=== PATIENT | female | born 1980 | race Caucasian/White ===

== ENCOUNTER 2018-11-21 19:26 | Emergency (ER) | payer MEDICAID ==
[~2018-11-21] VITALS: Ht 167.6 cm; Wt 65.8 kg
--- NOTE | 2018-11-21 20:00 | NUR ---
pt is a/a/ox4 ls diminished has a dry cough is a smoker not interested in quitting overall appearances fair ble's 2 plus edema noted denies pain but just wanted something for cough boyfriend at her side
--- NOTE | 2018-11-21 20:11 | NUR ---
pt discharge stated she lives in her car with her boyfriend offer skilled nursing information and transport but pt refused, prescriptions teaching given and discharge teaching given with effect
[2018-11-21 20:32] VITALS: BP 134/68
== END 2018-11-21 20:36 | disposition home or self-care (01) ==
LOC: ER 19:26
DX: J06.9 Acute upper respiratory infection, unspecified (principal); Z87.891 Personal history of nicotine dependence
CPT/HCPCS: A4663

== ENCOUNTER 2023-06-30 09:41 | Inpatient (IN) | payer MEDICAID, OTHER ==
[~2023-06-30] VITALS: Ht 167.6 cm; Wt 90.7 kg
[2023-06-30] MEDS ORDERED: CEphaleXIN 500 MG CAPSULE ONE (10:12)
[2023-06-30] MEDS ORDERED: SULFAMETH/TRIMETH 800/160 MG TABLET ONE (10:13)
[2023-06-30] MEDS ORDERED: CEphaleXIN 500 MG CAPSULE PO ONE (10:15)
[2023-06-30] MEDS ORDERED: SULFAMETH/TRIMETH 800/160 MG TABLET PO ONE (10:15)
[2023-06-30] MEDS ORDERED: HEPARIN/D5W DRIP 500 ML IV PRN (10:30)
[2023-06-30] MEDS ORDERED: IV NORMAL SALINE 250 ML IV ONE (10:43)
[2023-06-30] MEDS ORDERED: SWABABLE VALVE TRANSFER SET EA MC ONE (10:43)
[2023-06-30] MEDS ORDERED: IOHEXOL 350 100 ML INFUS..BTL ONE (10:43)
[2023-06-30] MEDS ORDERED: [UNRECOGNIZED DRUG - OTHER] ONE (10:46)
[2023-06-30] MEDS ORDERED: HEPARIN ONE (10:46)
[2023-06-30] MEDS ORDERED: HEPARIN SODIUM,PORCINE 5,000 UNITS/ML VIAL ONE (10:46)
[2023-06-30 10:48] LABS: BASOPHILS # (AUTO) 0.1 K/UL (0.0-0.2); BASOPHILS % (AUTO) 0.7 % (0.0-2.0); EOSINOPHILS # (AUTO) 0.1 K/uL (0.0-0.7); EOSINOPHILS % (AUTO) 1.5 % (0.0-7.0); HEMATOCRIT 33.1 % (31.2-41.9); LYMPHOCYTES # (AUTO) 1.9 K/uL (0.8-4.8); LYMPHOCYTES % (AUTO) 22.7 % (20.5-51.5); MEAN CORPUSCULAR HEMOGLOBIN 26.4 uug (24.7-32.8); MEAN CORPUSCULAR HGB CONC 33 g/dL (32.3-35.6); MEAN CORPUSCULAR VOLUME 79.7 fL (75.5-95.3); MONOCYTES # (AUTO) 0.7 K/uL (0.1-1.30); MONOCYTES % (AUTO) 8.2 % (0.0-11.0); NEUTROPHILS # (AUTO) 5.7 K/uL (1.8-8.9); NEUTROPHILS % (AUTO) 66.9 % (38.5-71.5); PLATELET COUNT (AUTO) 321 K/uL (179-408); RED BLOOD CELL COUNT(AUTO) 4.15 MIL/uL (3.63-4.92); RED CELL DISTRIBUTION WIDTH 14.7 % (12.3-17.7); WHITE BLOOD COUNT (AUTO) 8.5 K/uL (3.8-11.8)
[2023-06-30 10:58] LABS: CALCIUM 9.3 mg/dL (8.5-10.1); CARBON DIOXIDE 28 mmol/L (21-32); CHLORIDE 106 mmol/L (98-107); CREATININE 0.7 mg/dL (0.6-1.3); GLUCOSE 118 mg/dL (74-106); POTASSIUM 3.7 mmol/L (3.5-5.1); SODIUM SERUM 140 mmol/L (136-145); UREA NITROGEN, BLOOD 10 mg/dL (7-18)
[2023-06-30] MEDS ORDERED: HEPARIN SODIUM,PORCINE/PF 100 UNIT/ML, 5ML SYR XX ONE (11:00)
[2023-06-30 11:01] LABS: DIFFERENTIAL COMMENT 1
[2023-06-30 11:10] LABS: ALANINE AMINOTRANSFERASE 17 U/L (14-59); ALKALINE PHOSPHATASE 91 U/L (50-136); ASPARTATE AMINOTRANSFERASE 11 U/L (15-37); BILIRUBIN,DIRECT 0.1 mg/dL (0.0-0.2); BILIRUBIN,TOTAL 0.3 mg/dL (0.2-1.0); NT-PRO BNP 38 pg/mL (0-125); TOTAL PROTEIN, SERUM 7.6 g/dL (6.4-8.2)
[2023-06-30] MEDS ORDERED: HEPARIN SODIUM,PORCINE 5,000 UNITS/ML VIAL IV ONE (11:15)
[2023-06-30] MEDS: VANCOMYCIN IV 1,500 MG in IV DEXTROSE 5% 500 ML IV SCH (11:44)
[2023-06-30] MEDS ORDERED: CEPH500C2 PO (12:11)
[2023-06-30] MEDS ORDERED: SULF1TAB48 PO (12:11)
[2023-06-30 13:04] LABS: HIV-1 p24 ANTIGEN NON REACTIVE (NONREACTIVE); HIV-1/2 ANTIBODY NON REACTIVE (NONREACTIVE)
[2023-06-30] MEDS ORDERED: MAGNESIUM HYDROXIDE 30 ML LIQUID UDC PO PRN (18:00)
[2023-06-30] MEDS ORDERED: ACETAMINOPHEN 325 MG TABLET PO PRN (18:00)
[2023-06-30] MEDS ORDERED: ONDANSETRON 4 MG/2 ML VIAL IV PRN (18:00)
[2023-06-30] MEDS ORDERED: ENOXAPARIN SODIUM 100 MG/ML DISP.SYRIN SQ SCH (19:45)
[2023-06-30] MEDS ORDERED: ENOXAPARIN SODIUM 100 MG/ML DISP.SYRIN SQ ONE (19:49)
[2023-06-30] MEDS ORDERED: PIPERACILLIN/TAZOBACTAM/D5W 50 ML IV ONE (20:06)
[2023-06-30] MEDS: PIPERACILLIN SODIUM/TAZOBACTAM 3.375 G in IV DEXTROSE 5% 50 ML IV SCH (20:49)
[2023-06-30] MEDS ORDERED: PIPERACILLIN SODIUM/TAZO 3.375 GM VIAL ONE (21:40)
[2023-06-30] MEDS: ACIDOPHILUS/BULGARICUS CHEW TAB PO SCH (21:45)
[2023-06-30] MEDS: DOCUSATE SODIUM 250 MG CAPSULE PO SCH (21:45)
[2023-06-30] MEDS: MORPHINE SULFATE 2 MG/1 ML DISP.SYRIN IV PRN (21:45)
[2023-06-30 21:46] VITALS: BP 160/96; TEMP 98.7; O2SAT 97
[2023-06-30] MEDS ORDERED: VANCOMYCIN HCL 500 MG VIAL ONE (21:47)
[2023-06-30] MEDS ORDERED: VANCOMYCIN 1000 MG VIAL ONE (21:47)
[2023-07-01 00:11] VITALS: BP 134/88; TEMP 98.2; O2SAT 97
[2023-07-01] MEDS: PIPERACILLIN SODIUM/TAZOBACTAM 3.375 G in IV DEXTROSE 5% 50 ML IV SCH ×2 (02:09→09:31)
[2023-07-01] MEDS: MORPHINE SULFATE 2 MG/1 ML DISP.SYRIN IV PRN ×4 (02:10→22:11)
[2023-07-01] MEDS: VANCOMYCIN IV 1,500 MG in IV DEXTROSE 5% 500 ML IV SCH ×2 (02:11→16:22)
[2023-07-01 04:22] VITALS: BP 154/93; TEMP 98.7; O2SAT 96
[2023-07-01 07:24] LABS: BASOPHILS % (AUTO) 0.4 % (0.0-2.0); EOSINOPHILS # (AUTO) 0.1 K/uL (0.0-0.7); EOSINOPHILS % (AUTO) 1.7 % (0.0-7.0); HEMATOCRIT 33.8 % (31.2-41.9); HEMOGLOBIN 11.4 g/dL (10.9-14.3); LYMPHOCYTES # (AUTO) 1.6 K/uL (0.8-4.8); LYMPHOCYTES % (AUTO) 20.9 % (20.5-51.5); MEAN CORPUSCULAR HEMOGLOBIN 26.5 uug (24.7-32.8); MEAN CORPUSCULAR HGB CONC 34 g/dL (32.3-35.6); MEAN CORPUSCULAR VOLUME 78.9 fL (75.5-95.3); MONOCYTES # (AUTO) 0.5 K/uL (0.1-1.30); MONOCYTES % (AUTO) 6.4 % (0.0-11.0); NEUTROPHILS # (AUTO) 5.2 K/uL (1.8-8.9); NEUTROPHILS % (AUTO) 70.6 % (38.5-71.5); PLATELET COUNT (AUTO) 304 K/uL (179-408); RED BLOOD CELL COUNT(AUTO) 4.29 MIL/uL (3.63-4.92); RED CELL DISTRIBUTION WIDTH 14.3 % (12.3-17.7); WHITE BLOOD COUNT (AUTO) 7.4 K/uL (3.8-11.8)
[2023-07-01 07:55] LABS: DIFFERENTIAL COMMENT 1
[2023-07-01 07:57] LABS: ALBUMIN 2.7 g/dL (3.4-5.0); BILIRUBIN,TOTAL 0.4 mg/dL (0.2-1.0); CALCIUM 8.9 mg/dL (8.5-10.1); CREATININE 0.6 mg/dL (0.6-1.3); MAGNESIUM 1.9 mg/dL (1.8-2.4); PHOSPHOROUS 3.4 mg/dL (2.5-4.9); POTASSIUM 3.7 mmol/L (3.5-5.1); TOTAL PROTEIN, SERUM 7.1 g/dL (6.4-8.2)
[2023-07-01 08:00] VITALS: BP 162/94; TEMP 97.9; TEMP 98.1; O2SAT 98
[2023-07-01] MEDS ORDERED: ENOXAPARIN SODIUM 100 MG/ML DISP.SYRIN SQ SCH (08:00)
[2023-07-01] MEDS: ACIDOPHILUS/BULGARICUS CHEW TAB PO SCH ×2 (08:24→20:25)
[2023-07-01] MEDS: PANTOPRAZOLE SODIUM 40 MG TABLET.DR PO SCH (08:24)
[2023-07-01] MEDS: ENOXAPARIN SODIUM 100 MG/ML DISP.SYRIN SQ SCH ×2 (09:48→20:26)
[2023-07-01 11:16] VITALS: BP 153/104; TEMP 99.1; O2SAT 97
[2023-07-01] MEDS: AMLODIPINE 5 MG TABLET PO SCH (13:58)
[2023-07-01] MEDS: PIPERACILLIN SODIUM/TAZOBACTAM 3.375 G in IV DEXTROSE 5% 100 ML IV SCH ×2 (13:59→21:24)
[2023-07-01] MEDS: CLONIDINE HCL 0.1 MG TABLET PO PRN (15:13)
[2023-07-01 15:57] VITALS: BP 173/103; TEMP 99.1; O2SAT 97
[2023-07-01] MEDS ORDERED: LIDOCAINE HCL 1% 20 ML VIAL IJ PRN (18:15)
[2023-07-01 20:25] VITALS: BP 137/81; TEMP 99.1; O2SAT 96
[2023-07-01] MEDS: DOCUSATE SODIUM 250 MG CAPSULE PO SCH (20:25)
[2023-07-01] MEDS: HYDROCODONE/APAP 5-325MG TABLET PO PRN (20:35)
[2023-07-02] MEDS: HYDROCODONE/APAP 5-325MG TABLET PO PRN ×2 (04:26→15:33)
[2023-07-02 04:35] VITALS: BP 148/75; TEMP 99.1; O2SAT 98
[2023-07-02 05:20] LABS: BASOPHILS % (AUTO) 0.5 % (0.0-2.0); EOSINOPHILS # (AUTO) 0.1 K/uL (0.0-0.7); HEMATOCRIT 34.4 % (31.2-41.9); HEMOGLOBIN 11.6 g/dL (10.9-14.3); LYMPHOCYTES # (AUTO) 1.1 K/uL (0.8-4.8); LYMPHOCYTES % (AUTO) 14.6 % (20.5-51.5); MEAN CORPUSCULAR HEMOGLOBIN 26.4 uug (24.7-32.8); MEAN CORPUSCULAR HGB CONC 34 g/dL (32.3-35.6); MEAN CORPUSCULAR VOLUME 78.2 fL (75.5-95.3); MONOCYTES # (AUTO) 0.6 K/uL (0.1-1.30); MONOCYTES % (AUTO) 7.8 % (0.0-11.0); NEUTROPHILS # (AUTO) 5.8 K/uL (1.8-8.9); NEUTROPHILS % (AUTO) 76.1 % (38.5-71.5); PLATELET COUNT (AUTO) 324 K/uL (179-408); RED CELL DISTRIBUTION WIDTH 14.3 % (12.3-17.7); WHITE BLOOD COUNT (AUTO) 7.7 K/uL (3.8-11.8)
[2023-07-02] MEDS: PIPERACILLIN SODIUM/TAZOBACTAM 3.375 G in IV DEXTROSE 5% 100 ML IV SCH ×3 (05:23→22:07)
[2023-07-02 05:26] LABS: DIFFERENTIAL COMMENT 1
[2023-07-02 05:27] LABS: CALCIUM 8.8 mg/dL (8.5-10.1); CREATININE 0.7 mg/dL (0.6-1.3); POTASSIUM 3.2 mmol/L (3.5-5.1)
[2023-07-02] MEDS: VANCOMYCIN IV 1,500 MG in IV DEXTROSE 5% 500 ML IV SCH ×2 (06:11→15:33)
[2023-07-02] MEDS: PANTOPRAZOLE SODIUM 40 MG TABLET.DR PO SCH (06:22)
[2023-07-02 08:00] VITALS: BP 132/97; TEMP 98.2; O2SAT 99
[2023-07-02] MEDS ORDERED: POTASSIUM CHLORIDE 20 MEQ TAB.PRT.SR PO ONE (08:30)
[2023-07-02] MEDS: ACIDOPHILUS/BULGARICUS CHEW TAB PO SCH ×2 (08:48→21:09)
[2023-07-02] MEDS: AMLODIPINE 5 MG TABLET PO SCH (08:49)
[2023-07-02] MEDS: ENOXAPARIN SODIUM 100 MG/ML DISP.SYRIN SQ SCH ×2 (08:51→21:14)
[2023-07-02] MEDS: MORPHINE SULFATE 2 MG/1 ML DISP.SYRIN IV PRN ×2 (12:27→21:09)
[2023-07-02 12:46] VITALS: BP 152/90; TEMP 99.1; O2SAT 96
[2023-07-02 15:25] VITALS: BP 0/0; TEMP 98.5; O2SAT 96
[2023-07-02 19:50] VITALS: BP 167/96; TEMP 98.6; O2SAT 99
[2023-07-02] MEDS: DOCUSATE SODIUM 250 MG CAPSULE PO SCH (21:09)
[2023-07-02] MEDS: MUPIROCIN 2% OINT 22 GM TUBE TP SCH (21:10)
[2023-07-02] MEDS: CLONIDINE HCL 0.1 MG TABLET PO PRN (22:17)
[2023-07-03] MEDS: VANCOMYCIN IV 1,500 MG in IV DEXTROSE 5% 500 ML IV SCH (00:28)
[2023-07-03 04:50] VITALS: BP 166/90; TEMP 98.3; O2SAT 97
[2023-07-03] MEDS: PIPERACILLIN SODIUM/TAZOBACTAM 3.375 G in IV DEXTROSE 5% 100 ML IV SCH (05:31)
[2023-07-03] MEDS: CLONIDINE HCL 0.1 MG TABLET PO PRN (05:40)
[2023-07-03] MEDS: HYDROCODONE/APAP 5-325MG TABLET PO PRN (05:41)
[2023-07-03] MEDS: PANTOPRAZOLE SODIUM 40 MG TABLET.DR PO SCH (06:44)
[2023-07-03 07:21] LABS: CALCIUM 9.5 mg/dL (8.5-10.1); CREATININE 1.8 mg/dL (0.6-1.3); POTASSIUM 3.1 mmol/L (3.5-5.1)
[2023-07-03 07:37] LABS: BASOPHILS % (AUTO) 0.2 % (0.0-2.0); EOSINOPHILS % (AUTO) 0.1 % (0.0-7.0); HEMOGLOBIN 12.9 g/dL (10.9-14.3); LYMPHOCYTES # (AUTO) 1.2 K/uL (0.8-4.8); LYMPHOCYTES % (AUTO) 10.6 % (20.5-51.5); MEAN CORPUSCULAR HEMOGLOBIN 26.8 uug (24.7-32.8); MEAN CORPUSCULAR HGB CONC 34 g/dL (32.3-35.6); MONOCYTES # (AUTO) 0.9 K/uL (0.1-1.30); MONOCYTES % (AUTO) 7.4 % (0.0-11.0); NEUTROPHILS # (AUTO) 9.5 K/uL (1.8-8.9); NEUTROPHILS % (AUTO) 81.7 % (38.5-71.5); PLATELET COUNT (AUTO) 411 K/uL (179-408); RED CELL DISTRIBUTION WIDTH 14.4 % (12.3-17.7); WHITE BLOOD COUNT (AUTO) 11.6 K/uL (3.8-11.8)
[2023-07-03 08:00] VITALS: BP 148/82; TEMP 98.5; O2SAT 98
[2023-07-03 08:21] LABS: DIFFERENTIAL COMMENT 1
[2023-07-03] MEDS: ACIDOPHILUS/BULGARICUS CHEW TAB PO SCH ×2 (08:31→20:24)
[2023-07-03] MEDS: AMLODIPINE 5 MG TABLET PO SCH (08:32)
[2023-07-03] MEDS: MUPIROCIN 2% OINT 22 GM TUBE TP SCH ×2 (08:33→20:33)
[2023-07-03] MEDS: ENOXAPARIN SODIUM 100 MG/ML DISP.SYRIN SQ SCH (08:33)
[2023-07-03] MEDS ORDERED: POTASSIUM CHLORIDE 20 MEQ TAB.PRT.SR PO ONE (09:15)
[2023-07-03 12:00] VITALS: BP 144/79; TEMP 98.6; O2SAT 98
[2023-07-03] MEDS: CEFEPIME HCL 2 G in IV DEXTROSE 5% 100 ML IV SCH (14:36)
[2023-07-03 15:17] LABS: LACTATE DEHYDROGENASE 252 U/L (81-234)
[2023-07-03 19:14] VITALS: BP 138/98; TEMP 98.8; O2SAT 98
[2023-07-03 20:00] VITALS: BP 141/88; TEMP 98.6; O2SAT 96
[2023-07-03] MEDS: DOCUSATE SODIUM 250 MG CAPSULE PO SCH (20:24)
[2023-07-03] MEDS: APIXABAN 5 MG TABLET PO SCH (20:25)
[2023-07-04] MEDS: CEFEPIME HCL 2 G in IV DEXTROSE 5% 100 ML IV SCH (02:40)
[2023-07-04 05:00] VITALS: BP 131/81; TEMP 98; O2SAT 96
[2023-07-04] MEDS: PANTOPRAZOLE SODIUM 40 MG TABLET.DR PO SCH (06:38)
[2023-07-04 07:17] LABS: BASOPHILS % (AUTO) 0.3 % (0.0-2.0); EOSINOPHILS % (AUTO) 0.4 % (0.0-7.0); HEMATOCRIT 34.9 % (31.2-41.9); HEMOGLOBIN 11.4 g/dL (10.9-14.3); LYMPHOCYTES # (AUTO) 1.4 K/uL (0.8-4.8); LYMPHOCYTES % (AUTO) 12.6 % (20.5-51.5); MEAN CORPUSCULAR HEMOGLOBIN 25.9 uug (24.7-32.8); MEAN CORPUSCULAR HGB CONC 33 g/dL (32.3-35.6); MEAN CORPUSCULAR VOLUME 79.5 fL (75.5-95.3); MONOCYTES % (AUTO) 9.4 % (0.0-11.0); NEUTROPHILS # (AUTO) 8.7 K/uL (1.8-8.9); NEUTROPHILS % (AUTO) 77.3 % (38.5-71.5); PLATELET COUNT (AUTO) 346 K/uL (179-408); RED BLOOD CELL COUNT(AUTO) 4.38 MIL/uL (3.63-4.92); RED CELL DISTRIBUTION WIDTH 14.5 % (12.3-17.7); WHITE BLOOD COUNT (AUTO) 11.2 K/uL (3.8-11.8)
[2023-07-04 07:20] LABS: DIFFERENTIAL COMMENT 1
[2023-07-04 07:42] LABS: CALCIUM 8.6 mg/dL (8.5-10.1); CREATININE 2.9 mg/dL (0.6-1.3); MAGNESIUM 2.2 mg/dL (1.8-2.4); POTASSIUM 3.3 mmol/L (3.5-5.1)
[2023-07-04 08:00] VITALS: BP 109/79; TEMP 98; O2SAT 96
[2023-07-04 08:10] LABS: HOMOCYSTEINE, PLASMA 17.9 umol/L (0.0-14.5)
[2023-07-04] MEDS: ACIDOPHILUS/BULGARICUS CHEW TAB PO SCH (08:18)
[2023-07-04] MEDS: APIXABAN 5 MG TABLET PO SCH (08:18)
[2023-07-04] MEDS: AMLODIPINE 5 MG TABLET PO SCH (08:18)
[2023-07-04] MEDS: MUPIROCIN 2% OINT 22 GM TUBE TP SCH (08:20)
[2023-07-04 09:28] LABS: VANCOMYCIN,RANDOM 33.3 ug/mL (20.0-30.0)
[2023-07-04] MEDS ORDERED: POTASSIUM CHLORIDE 10 MEQ TAB.PRT.SR PO ONE (09:45)
[2023-07-04 11:07] LABS: CANCER ANTIGEN 15-3 29.7 U/mL (0.0-25.0); CARCINOEMBRYONIC AG (CEA) 3.4 ng/mL (0.0-4.7)
[2023-07-04 11:59] VITALS: BP 124/78; TEMP 97.8; O2SAT 95
[2023-07-05] MEDS ORDERED: CEFEPIME HCL 2 G in IV DEXTROSE 5% 100 ML IV SCH (02:00)
[2023-07-06] MEDS ORDERED: VALA500T34 PO (08:52)
[2023-07-06] MEDS ORDERED: ACID1TAB4 PO (08:52)
== END 2023-07-04 15:00 | disposition home or self-care (01) | DRG 197 ==
LOC: ER 09:41 → TRANSITION 14:45 → TELE3 20:52 → MEDSURG3 07-01 00:42
PROVIDERS: ADMIT Internal Medicine; ATTEND Internal Medicine
PROC: 0JBN3ZZ Excision of Right Lower Leg Subcutaneous Tissue and Fascia, Percutaneous Approach (ICD-10-PCS; principal; 2023-07-02)
PROC: 0JBP3ZZ Excision of Left Lower Leg Subcutaneous Tissue and Fascia, Percutaneous Approach (ICD-10-PCS; principal; 2023-07-02)
PROC: 05HY33Z Insertion of Infusion Device into Upper Vein, Percutaneous Approach (ICD-10-PCS; principal; 2023-07-02)
DX: I82.622 Acute embolism and thrombosis of deep veins of left upper extremity (principal); N17.0 Acute kidney failure with tubular necrosis; L03.115 Cellulitis of right lower limb; E44.0 Moderate protein-calorie malnutrition; L03.116 Cellulitis of left lower limb; E88.09 Other disorders of plasma-protein metabolism, not elsewhere classified; S81.801A Unspecified open wound, right lower leg, initial encounter; I82.C12 Acute embolism and thrombosis of left internal jugular vein; Z68.32 Body mass index [BMI] 32.0-32.9, adult; F11.10 Opioid abuse, uncomplicated; Z59.01 Sheltered homelessness; I10 Essential (primary) hypertension; F17.290 Nicotine dependence, other tobacco product, uncomplicated; R59.0 Localized enlarged lymph nodes; R23.4 Changes in skin texture; S81.802A Unspecified open wound, left lower leg, initial encounter; X58.XXXA Exposure to other specified factors, initial encounter; Y92.89 Other specified places as the place of occurrence of the external cause; E87.6 Hypokalemia; E66.9 Obesity, unspecified; Z71.3 Dietary counseling and surveillance
CPT/HCPCS: 36415; 70030-TC; 71045; 71275; 76641-TC; 82378; 83090; 83605; 83615; 83735; 84100; 84484; 85025; 85305; 85613; 85730; 86300; 86803; 87040; 87806; 93005; A4606; A4663; G0378; J0692; J1644; J1650; J2270; J2543; J3370; J3490; J7040; J7050; J7060; Q9967